=== PATIENT | female | born 1995 | race African-American/Black ===

== ENCOUNTER 2022-05-29 00:58 | Emergency (ER) | payer OTHER, SELFPAY ==
--- NOTE | ~2022-05-29 | XR_ITS ---
EXAMINATION: XR CHEST CLINICAL INFORMATION: Question aspiration COMPARISON: None TECHNIQUE: AP portable view of the chest was obtained. FINDINGS: No significant abnormality is noted involving the heart, lungs, mediastinum, bony thorax or soft tissues. XR/XR chest 1V IMPRESSION: No acute disease.
--- NOTE | 2022-05-29 01:03 | ECG_ITS ---
Test Reason : DRUNK Blood Pressure : / mmHG Vent. Rate : 088 BPM Atrial Rate : 088 BPM P-R Int : 148 ms QRS Dur : 098 ms QT Int : 412 ms P-R-T Axes : 063 080 042 degrees QTc Int : 498 ms Normal sinus rhythm Possible Left atrial enlargement Prolonged QT Abnormal ECG No previous ECGs available Referred By: Apple Barba Electronically Signed By:Valdemar Mead
[2022-05-29] MEDS: diphenhydrAMINE HCL 50 MG/ML VIAL IM (01:05)
[2022-05-29] MEDS: Haloperidol Lactate 5 MG/ML VIAL 10 MG IM (01:05)
--- NOTE | 2022-05-29 01:05 | ED.GENADULT ---
HPI - General Adult General Chief complaint: ETOH/Substance Use <MADONNA Marques - Last Filed: 05/29/22 01:50> Stated complaint: si <MADONNA Marques - Last Filed: 05/29/22 01:50> Time Seen by Provider: 05/29/22 01:03 <MADONNA Marques - Last Filed: 05/29/22 01:50> Source: EMS and police <MADONNA Marques - Last Filed: 05/29/22 01:50> Mode of arrival: EMS <MADONNA Marques Last Filed: 05/29/22 01:50> Limitations: altered mental status <MADONNA Marques Last Filed: 05/29/22 01:50> History of Present Illness HPI narrative: 27 year old female brought in via EMS with police for altered mental status, combative behavior. They received a call from patient's boyfriend that he needed help, did not provide any more information. Unable to obtain medical history, patient unable to give me a history per. Unable to obtain review of systems. Patient arrives to the department combative in soft restraints via EMS, altered unable to answer any of my questions. Atraumatic appearing. To note prior to arrival patient received 2 mg of IM Versed as well as 2 mg of intranasal Versed. Patient harm to self and others therefore four-point restraints immediately ordered as well as medical restraints. <MADONNA Marques Last Filed: 05/29/22 01:50> Related Data Allergies/adverse reactions: Allergies Allergy/AdvReac Type Severity Reaction Status Date / Time milk [MILK] Allergy Unknown STOMACH Unverified 03/13/20 17:39 UPSET nut - unspecified [NUTS] Allergy Unknown SWELLING Unverified 03/13/20 17:39 soy [SOY] Allergy Unknown STOMACH Unverified 03/13/20 17:39 UPSET <MADONNA Marques Last Filed: 05/29/22 01:50> Review of Systems Review of Systems: Yes Unobtainable due to mental status <MADONNA Marques Last Filed: 05/29/22 01:50> PMFSH Past Medical History Attestation statement: The following information was validated with the patient. <MADONNA Marques - Last Filed: 05/29/22 01:50> Source: old records reviewed and nursing notes reviewed <MADONAN Marques - Last Filed: 05/29/22 01:50> Social History Social History: Social History Advance Directives: No Advance Directives Information Provided: Yes <MADONNA Marques - Last Filed: 05/29/22 01:50> Physical Exam ED Vital Signs: Vital Signs - 24 hr 05/29/22 01:16 05/29/22 07:16 Pulse Rate 111 H 62 Respiratory Rate 19 20 Blood Pressure 119/63 98/49 L Pulse Oximetry 99 Oxygen Delivery Method Room Air BMI result Body Mass Index 24.2 <MADONNA Marques - Last Filed: 05/29/22 01:50> Vital Signs - 24 hr 05/29/22 01:16 05/29/22 07:16 Pulse Rate 111 H 62 Respiratory Rate 19 20 Blood Pressure 119/63 98/49 L Pulse Oximetry 99 Oxygen Delivery Method Room Air BMI result Body Mass Index 24.2 <Al Oliveira MD - Last Filed: 05/29/22 07:54> Appearance: Patient awake, moving all extremities, combative, not answering questions, diaphoretic Head: Normocephalic, atraumatic, no step-offs or deformities Eyes: Pupils equal, round and reactive to light.? ENT: Pharynx normal.? Neck: Normal inspection.? Neck supple.? CVS: Rapid rate normal rhythm likely sinus tachycardia.? Pulses normal.? Respiratory: No respiratory distress.? Breath sounds normal.? Abdomen: Soft and nontender.? Skin: Skin warm and dry.? Normal skin color.? Normal skin turgor.? Extremities: No lower extremity edema.? No calf ttp. 5/5 strength to bilateral upper and lower extremities Neuro: Patient awake, moving all extremities, combative, not answering questions or following commands. Unable to obtain an accurate neurological exam. <MADONNA Marques - Last Filed: 05/29/22 01:50> Course Reevaluation(s) Reevaluation #1: Patient continues to be combative, spoke to Dr. Oliveira who recommends more Haldol. <MADONNA Marques - Last Filed: 05/29/22 01:50> Time: 01:18 <MADONNA Marques - Last Filed: 05/29/22 01:50> Reevaluation #2: Laboratory studies pending. Sign-out given to night doctor <MADONNA Marques - Last Filed: 05/29/22 01:50> Time: 01:48 <MADONNA Marques - Last Filed: 05/29/22 01:50> Reevaluation #3: Start physician observation: Laboratory evaluation: PC low 4400. CK elevated 224, most likely secondary to agitation. ETOH elevated 256. COVID-19 positive. Urine tox screen pending. The patient will be placed in physician observation is and will be observed until she is sober and can be re-evaluated to determine if she needs crisis evaluation. <Al Oliveira MD - Last Filed: 05/29/22 07:54> Time: 04:57 <lA Oliveira MD - Last Filed: 05/29/22 07:54> Additional Reevaluation(s): 0753: At the end of my shift, the patient is still altered. The patient's care was turned over to my colleague, Dr. Curt Hayes. <Al Oliveira MD - Last Filed: 05/29/22 07:54> Medications Administered Discontinued Medications Generic Name Dose Route Start Last Admin Trade Name Freq PRN Reason Stop Dose Admin Diphenhydramine HCl 50 mg 05/29/22 01:02 05/29/22 01:05 Diphenhydramine Hcl 50 Mg/Ml Vial IM 05/29/22 01:03 50 mg ONCE ONE Administration Haloperidol Lactate 10 mg 05/29/22 01:02 05/29/22 01:05 Haloperidol Lactate 5 Mg/Ml Vial IM 05/29/22 01:03 10 mg ONCE ONE Administration Haloperidol Lactate 5 mg 05/29/22 01:18 05/29/22 01:22 Haloperidol Lactate 5 Mg/Ml Vial IM 05/29/22 01:19 Not Given ONCE ONE Sodium Chloride 1,000 mls @ 999 mls/hr 05/29/22 01:15 05/29/22 06:22 Ns IV 05/29/22 02:15 Infused .Q1H1M SAMANTHA Infusion Sodium Chloride 1,000 mls @ 999 mls/hr 05/29/22 01:15 05/29/22 06:22 Ns IV 05/29/22 02:15 Infused .Q1H1M SAMANTHA Infusion <MADONAN Marques - Last Filed: 05/29/22 01:50> Medications Administered Discontinued Medications Generic Name Dose Route Start Last Admin Trade Name Freq PRN Reason Stop Dose Admin Diphenhydramine HCl 50 mg 05/29/22 01:02 05/29/22 01:05 Diphenhydramine Hcl 50 Mg/Ml Vial IM 05/29/22 01:03 50 mg ONCE ONE Administration Haloperidol Lactate 10 mg 05/29/22 01:02 05/29/22 01:05 Haloperidol Lactate 5 Mg/Ml Vial IM 05/29/22 01:03 10 mg ONCE ONE Administration Haloperidol Lactate 5 mg 05/29/22 01:18 05/29/22 01:22 Haloperidol Lactate 5 Mg/Ml Vial IM 05/29/22 01:19 Not Given ONCE ONE Sodium Chloride 1,000 mls @ 999 mls/hr 05/29/22 01:15 05/29/22 06:22 Ns IV 05/29/22 02:15 Infused .Q1H1M SAMANTHA Infusion Sodium Chloride 1,000 mls @ 999 mls/hr 05/29/22 01:15 05/29/22 06:22 Ns IV 05/29/22 02:15 Infused .Q1H1M SAMANTHA Infusion <Al Oliveira MD - Last Filed: 05/29/22 07:54> Medical Decision Making MDM Narrative Medical decision making narrative: 0100 27-year-old female presents to the emergency department with EMS and police for combative behavior, altered mental status, unclear history. Physical exam patient awake, moving all extremities, combative, not answering questions or following commands. Unable to obtain an accurate neurological exam. Rapid rate regular rhythm likely sinus tachycardia. Breath sounds clear bilaterally. Abdomen soft nontender nondistended. Plan at this time is to obtain basic labs, ANTOINE, troponin, CPK, chest x-ray, ethanol level, salicylates, acetaminophen. Will medically restrained patient as well as 4 point restraints. Patient harm to self and others. <MADONNA Marques - Last Filed: 05/29/22 01:50> Medical Records Medical records reviewed: Yes I reviewed the patient's medical records. <MADONNA Marques - Last Filed: 05/29/22 01:50> Lab Data Lab results reviewed: Yes I reviewed the patient's lab results. <MADONNA Marques - Last Filed: 05/29/22 01:50> Result diagrams: : 05/29/22 01:30 05/29/22 01:30 <MADONNA Marques - Last Filed: 05/29/22 01:50> Labs: Lab Results 05/29/22 05/29/22 05/29/22 Range/Units 01:30 01:30 01:30 WBC 4.4 L (4.8-10.8) X10*3/uL RBC 4.31 (4.20-5.50) X10*6/uL Hgb 12.7 (12.0-16.0) g/dl Hct 36.5 L (37.0-47.0) % MCV 84.7 (80.0-98.0) fL MCH 29.5 (27.0-33.0) pg MCHC 34.8 (31.0-35.0) g/dl RDW 13.2 (11.0-16.0) % Plt Count 262 (160-400) X10*3/uL MPV 10.2 (9.4-12.3) fL Immature Gran % (Auto) 0.2 (0.0-0.4) % Neut % (Auto) 43.7 L (45-73) % Lymph % (Auto) 49.3 H (20-40) % Laurens % (Auto) 5.6 (2-11) % Eos % (Auto) 0.7 (0-4) % Baso % (Auto) 0.5 (0-2) % Lymph # (Auto) 2.2 (1.2-4.9) X10*3/uL Laurens # (Auto) 0.3 (0.1-1.2) X10*3/uL Eos # (Auto) 0.0 (0.0-0.4) X10*3/uL Baso # (Auto) 0.0 (0.0-0.2) X10*3/uL Abs Immat Gran (auto) 0.01 (0.00-0.03) X10*3/uL Absolute Neuts (auto) 1.9 L (2.0-8.3) x10*3/uL Absolute Nucleated RBC 0.000 (0.0-0.012) X10*3/uL Nucleated RBC % (auto) 0.0 (0.0-0.2) /100WBC Sodium 138 (135-145) mmol/L Potassium 3.3 (3.3-5.1) mmol/L Chloride 108 (96-108) mmol/L Carbon Dioxide 22 (22-29) mmol/L Anion Gap 11 L (12-20) BUN 13 (9-16) mg/dL Creatinine 0.75 (0.5-1.4) mg/dL Estim Creat Clear Calc 105.4 Estimated GFR > 60 Random Glucose 98 (60-115) mg/dL Calcium 8.6 (8.4-10.2) mg/dL Magnesium 1.9 (1.6-2.6) mg/dL Total Bilirubin 0.2 (0.0-1.0) mg/dL AST 26 (5-31) U/L ALT 21 (0-31) U/L Alkaline Phosphatase 112 (39-117) U/L Total Creatine Kinase 224 H (26-140) U/L Total Protein 7.0 (6.5-8.0) g/dL Albumin 4.0 (3.5-5.0) g/dL Salicylates (15-30) mg/dL Acetaminophen (<30) mcg/mL Ethyl Alcohol mg/dL COVID-19 ([facility]) Positive A (Negative) COVID-19 Clin Com See Note 05/29/22 Range/Units 01:30 WBC (4.8-10.8) X10*3/uL RBC (4.20-5.50) X10*6/uL Hgb (12.0-16.0) g/dl Hct (37.0-47.0) % MCV (80.0-98.0) fL MCH (27.0-33.0) pg MCHC (31.0-35.0) g/dl RDW (11.0-16.0) % Plt Count (160-400) X10*3/uL MPV (9.4-12.3) fL Immature Gran % (Auto) (0.0-0.4) % Neut % (Auto) (45-73) % Lymph % (Auto) (20-40) % Laurens % (Auto) (2-11) % Eos % (Auto) (0-4) % Baso % (Auto) (0-2) % Lymph # (Auto) (1.2-4.9) X10*3/uL Laurens # (Auto) (0.1-1.2) X10*3/uL Eos # (Auto) (0.0-0.4) X10*3/uL Baso # (Auto) (0.0-0.2) X10*3/uL Abs Immat Gran (auto) (0.00-0.03) X10*3/uL Absolute Neuts (auto) (2.0-8.3) x10*3/uL Absolute Nucleated RBC (0.0-0.012) X10*3/uL Nucleated RBC % (auto) (0.0-0.2) /100WBC Sodium (135-145) mmol/L Potassium (3.3-5.1) mmol/L Chloride (96-108) mmol/L Carbon Dioxide (22-29) mmol/L Anion Gap (12-20) BUN (9-16) mg/dL Creatinine (0.5-1.4) mg/dL Estim Creat Clear Calc Estimated GFR Random Glucose (60-115) mg/dL Calcium (8.4-10.2) mg/dL Magnesium (1.6-2.6) mg/dL Total Bilirubin (0.0-1.0) mg/dL AST (5-31) U/L ALT (0-31) U/L Alkaline Phosphatase (39-117) U/L Total Creatine Kinase (26-140) U/L Total Protein (6.5-8.0) g/dL Albumin (3.5-5.0) g/dL Salicylates < 5.0 L (15-30) mg/dL Acetaminophen < 1 (<30) mcg/mL Ethyl Alcohol 256 mg/dL COVID-19 ([facility]) (Negative) COVID-19 Clin Com <MADONNA Marques - Last Filed: 05/29/22 01:50> Lab Results 05/29/22 05/29/22 05/29/22 Range/Units 01:30 01:30 01:30 WBC 4.4 L (4.8-10.8) X10*3/uL RBC 4.31 (4.20-5.50) X10*6/uL Hgb 12.7 (12.0-16.0) g/dl Hct 36.5 L (37.0-47.0) % MCV 84.7 (80.0-98.0) fL MCH 29.5 (27.0-33.0) pg MCHC 34.8 (31.0-35.0) g/dl RDW 13.2 (11.0-16.0) % Plt Count 262 (160-400) X10*3/uL MPV 10.2 (9.4-12.3) fL Immature Gran % (Auto) 0.2 (0.0-0.4) % Neut % (Auto) 43.7 L (45-73) % Lymph % (Auto) 49.3 H (20-40) % Laurens % (Auto) 5.6 (2-11) % Eos % (Auto) 0.7 (0-4) % Baso % (Auto) 0.5 (0-2) % Lymph # (Auto) 2.2 (1.2-4.9) X10*3/uL Laurens # (Auto) 0.3 (0.1-1.2) X10*3/uL Eos # (Auto) 0.0 (0.0-0.4) X10*3/uL Baso # (Auto) 0.0 (0.0-0.2) X10*3/uL Abs Immat Gran (auto) 0.01 (0.00-0.03) X10*3/uL Absolute Neuts (auto) 1.9 L (2.0-8.3) x10*3/uL Absolute Nucleated RBC 0.000 (0.0-0.012) X10*3/uL Nucleated RBC % (auto) 0.0 (0.0-0.2) /100WBC Sodium 138 (135-145) mmol/L Potassium 3.3 (3.3-5.1) mmol/L Chloride 108 (96-108) mmol/L Carbon Dioxide 22 (22-29) mmol/L Anion Gap 11 L (12-20) BUN 13 (9-16) mg/dL Creatinine 0.75 (0.5-1.4) mg/dL Estim Creat Clear Calc 105.4 Estimated GFR > 60 Random Glucose 98 (60-115) mg/dL Calcium 8.6 (8.4-10.2) mg/dL Magnesium 1.9 (1.6-2.6) mg/dL Total Bilirubin 0.2 (0.0-1.0) mg/dL AST 26 (5-31) U/L ALT 21 (0-31) U/L Alkaline Phosphatase 112 (39-117) U/L Total Creatine Kinase 224 H (26-140) U/L Total Protein 7.0 (6.5-8.0) g/dL Albumin 4.0 (3.5-5.0) g/dL Salicylates (15-30) mg/dL Acetaminophen (<30) mcg/mL Ethyl Alcohol mg/dL COVID-19 ([facility]) Positive A (Negative) COVID-19 Clin Com See Note 05/29/22 Range/Units 01:30 WBC (4.8-10.8) X10*3/uL RBC (4.20-5.50) X10*6/uL Hgb (12.0-16.0) g/dl Hct (37.0-47.0) % MCV (80.0-98.0) fL MCH (27.0-33.0) pg MCHC (31.0-35.0) g/dl RDW (11.0-16.0) % Plt Count (160-400) X10*3/uL MPV (9.4-12.3) fL Immature Gran % (Auto) (0.0-0.4) % Neut % (Auto) (45-73) % Lymph % (Auto) (20-40) % Laurens % (Auto) (2-11) % Eos % (Auto) (0-4) % Baso % (Auto) (0-2) % Lymph # (Auto) (1.2-4.9) X10*3/uL Laurens # (Auto) (0.1-1.2) X10*3/uL Eos # (Auto) (0.0-0.4) X10*3/uL Baso # (Auto) (0.0-0.2) X10*3/uL Abs Immat Gran (auto) (0.00-0.03) X10*3/uL Absolute Neuts (auto) (2.0-8.3) x10*3/uL Absolute Nucleated RBC (0.0-0.012) X10*3/uL Nucleated RBC % (auto) (0.0-0.2) /100WBC Sodium (135-145) mmol/L Potassium (3.3-5.1) mmol/L Chloride (96-108) mmol/L Carbon Dioxide (22-29) mmol/L Anion Gap (12-20) BUN (9-16) mg/dL Creatinine (0.5-1.4) mg/dL Estim Creat Clear Calc Estimated GFR Random Glucose (60-115) mg/dL Calcium (8.4-10.2) mg/dL Magnesium (1.6-2.6) mg/dL Total Bilirubin (0.0-1.0) mg/dL AST (5-31) U/L ALT (0-31) U/L Alkaline Phosphatase (39-117) U/L Total Creatine Kinase (26-140) U/L Total Protein (6.5-8.0) g/dL Albumin (3.5-5.0) g/dL Salicylates < 5.0 L (15-30) mg/dL Acetaminophen < 1 (<30) mcg/mL Ethyl Alcohol 256 mg/dL COVID-19 ([facility]) (Negative) COVID-19 Clin Com <Al Oliveira MD - Last Filed: 05/29/22 07:54> Critical Care Time Critical Care Time Critical Care Time: No <MADONNA Marques - Last Filed: 05/29/22 01:50> Discharge Plan Discharge Clinical Impression: Combative behavior, Altered mental status, Alcoholic intoxication <MADONNA Marques - Last Filed: 05/29/22 01:50> Patient Disposition: Still a Patient <MADONNA Marques - Last Filed: 05/29/22 01:50>
[2022-05-29 01:16] VITALS: BP 119/63; BP 140/84; PULSE 111; PULSE 113; RESP 19; O2SAT 99; BMI 24.2
[2022-05-29 01:37] LABS: MANUAL DIFF FLAG NO
[2022-05-29 01:38] LABS: Basophils Percent Auto 0.5 % (0-2); Eosinophils Percent Auto 0.7 % (0-4); Hematocrit 36.5 % (37.0-47.0); Hemoglobin 12.7 g/dl (12.0-16.0); Imm Gran Abs Auto 0.01 X10*3/uL (0.00-0.03); Imm Gran Pct Auto 0.2 % (0.0-0.4); Lymphocytes Absolute Auto 2.2 X10*3/uL (1.2-4.9); Lymphocytes Percent Auto 49.3 % (20-40); Mean Corpuscular HGB Conc 34.8 g/dl (31.0-35.0); Mean Corpuscular Hemoglobin 29.5 pg (27.0-33.0); Mean Corpuscular Volume 84.7 fL (80.0-98.0); Mean Platelet Volume 10.2 fL (9.4-12.3); Monocytes Absolute Auto 0.3 X10*3/uL (0.1-1.2); Monocytes Percent Auto 5.6 % (2-11); Neutrophils Absolute Auto 1.9 x10*3/uL (2.0-8.3); Neutrophils Percent Auto 43.7 % (45-73); Platelet Count 262 X10*3/uL (160-400); Red Blood Count 4.31 X10*6/uL (4.20-5.50); Red Cell Distribution Width 13.2 % (11.0-16.0); White Blood Count 4.4 X10*3/uL (4.8-10.8)
[2022-05-29 01:55] LABS: COVID-19 Test Positive (Negative); IDNOW Serial# 16C4AD1C
[2022-05-29 01:57] LABS: Alanine Aminotransferase 21 U/L (0-31); Alkaline Phosphatase 112 U/L (39-117); Anion Gap 11 (12-20); Aspartate Amino Transferase 26 U/L (5-31); Bilirubin Total 0.2 mg/dL (0.0-1.0); Blood Urea Nitrogen 13 mg/dL (9-16); Calcium 8.6 mg/dL (8.4-10.2); Carbon Dioxide 22 mmol/L (22-29); Chloride 108 mmol/L (96-108); Creatinine Clr Calc Pharmacy 105.4; Estimated Glomerular Filt Rate > 60; Glucose Random 98 mg/dL (60-115); Magnesium 1.9 mg/dL (1.6-2.6); Potassium 3.3 mmol/L (3.3-5.1); Sodium 138 mmol/L (135-145)
[2022-05-29 02:01] LABS: Ethanol 256 mg/dL; Salicylate < 5.0 mg/dL (15-30)
[2022-05-29] MEDS: 0.9 % Sodium Chloride 1,000 ML 999 ML IV ×2 (02:11→02:20)
[2022-05-29 02:56] LABS: Acetaminophen LAB < 1 mcg/mL (<30)
--- NOTE | 2022-05-29 04:05 | PC.NURSE ---
Pt. was medicated upon arrival with haldol and bendryl. Pt. fell asleep and was subsequently released from restraints. IV access was obtained and IVF running per AUG, Labs drawn and sent to lab. Pt. now sleeping in room with 1:1 at doorway.
[2022-05-29 07:16] VITALS: BP 98/49; PULSE 62; RESP 20
--- NOTE | 2022-05-29 07:17 | PC.NURSE ---
unable to obtain Agar scale at this time, patient asleep after being medicated earlier today. will attempt to complete cone patient is more alert/awake.
--- NOTE | 2022-05-29 11:43 | MHC.CARE ---
CARE Team contacted N crisis- Pt is a [facility] follow up as Pt was not able to be fully engaged.
[2022-05-29 14:21] VITALS: RESP 16
[2022-05-29 14:57] LABS: Appearance Urine Clear; Color Urine Yellow; Glucose Urine UA Negative (Negative); Leukocyte Esterase Urine Negative (Negative); Nitrite Urine Negative (Negative); Urine Blood Negative (Negative); Urine Ketones Negative (Negative); Urine Protein Negative (Neg-Trace)
[2022-05-29 15:21] LABS: Amphetamine Screen Urine Not Detected (Not Detect); Barbiturates, Urine Not Detected (Not Detect); Benzodiazepines Screen Urine POSITIVE (Not Detect); Cannabinoid Screen Urine POSITIVE (Not Detect); Cocaine Screen Urine POSITIVE (Not Detect); Fentanyl, urine Not Detected (Not Detect); Opiate Screen Urine Not Detected (Not Detect); Phencyclidine Screen Urine Not Detected (Not Detect)
[2022-05-29 15:23] VITALS: BP 109/77; PULSE 65; RESP 18; TEMP 36.7; O2SAT 100
--- NOTE | 2022-05-29 15:35 | PC.NURSE ---
Pt resting on stretcher at this time, requeting food/drink (provided sandwhich and allie sharonda). Pt would like to go home. This RN educated pt that the needs to be seen by [facility] first, pt okay with that plan
--- NOTE | 2022-05-29 15:51 | MHC.RECOVSUP ---
? Reason for consult:ETOH o? Current location:ED12? o? Identified substance use concern:? -? Overdose -? Support ?? Intervention: ? Plan: ? Additional information:[facility] went to speak to pt, pt declined services.
== END 2022-05-29 19:55 | disposition home or self-care (01) ==
PROVIDERS: Physician Assistant; Emergency Provider Emergency Medicine Emergency Medical Services; PCP Student in an Organized Health Care Education/Training Program
DX: U07.1 COVID-19 (principal); R41.82 Altered mental status, unspecified; F10.220 Alcohol dependence with intoxication, uncomplicated; Y90.8 Blood alcohol level of 240 mg/100 ml or more; R45.1 Restlessness and agitation; R45.6 Violent behavior
CPT/HCPCS: 36415; 71045; 80053; 80143; 80179; 80307; 81003; 82077; 82550; 83735; 85025; 87635; 93005; 96360; 96361; 96372; 99284; 99285; J1200